=== PATIENT | female | born 1955 | race Caucasian/White ===

== ENCOUNTER 2019-12-05 10:31 | Emergency (ER) | payer MEDICARE ==
[2019-12-05] MEDS ORDERED: Sodium Chloride 0.9% 1,000 ML ONE ×2 (11:33→12:51)
[2019-12-05] MEDS ORDERED: Ondansetron PF 4 MG/2 ML Vial ONE ×2 (11:33→13:21)
[2019-12-05] MEDS ORDERED: Lisinopril 10 MG TAB ONE (11:33)
[2019-12-05 11:37] LABS: Bilirubin Negative (Negative); Blood, Urine Moderate (Negative); Glucose, Urine (Dipstick) Negative (Negative); Leukocyte Trace (Negative); Nitrite Negative (Negative); Protein, Urine (Dipstick) > or equal to 300 mg/dL (Neg-Trace); Urobilinogen 0.2 mg/dL (Less than 2)
[2019-12-05 11:38] LABS: Clarity Hazy (Clear)
[2019-12-05 11:44] LABS: Bacteria/HPF Rare-Few HPF (None Seen); WBC/HPF 0-3 HPF (0-3)
--- NOTE | 2019-12-05 11:51 | RAD ---
EXAM: CHEST ONE VIEW HISTORY: Cough COMPARISON: None FINDINGS: The cardiac silhouette and pulmonary vasculature is within normal limits. Mild elevation right hemidi aphragm is present with minimal volume loss right lung base. Lungs are otherwise clear without consolidation or pleural effusion. The osseous structures are intact. IMPRESSION: No acute cardiopulmonary process.
--- NOTE | 2019-12-05 12:02 | RAD ---
Radiograph left foot 3 views: DATE: 12/05/2019 HISTORY: 64-year-old female with fever and large chronic foot ulcer. COMPARISON: None FINDINGS: There is diffuse soft tissue edema. The soft tissue swelling and edema is especially severe throughou t the mid foot. There is lateral dislocation or subluxation of the fifth metatarsal relative to the tarsal bones. The re is superior subluxation or dislocation of the first metatarsal relative to the tarsal bones. The status of the second, third, and fourth tarsometatarsal joints is difficult to visualize because ther e is amorphous, cloudy new bone in the soft tissues, perhaps representing exuberant callus and or aggressive periostitis, partially obscuring these tarsometatarsal joints. 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
[2019-12-05 12:24] LABS: ALT (SGPT) 14 U/L (8-55); AST (SGOT) 17 U/L (5-34); Albumin 3.3 g/dL (3.4-4.8); Alkaline Phosphatase 99 U/L (40-110); Anion Gap 18 mmol/L (10-20); BUN (Urea Nitrogen) 13 mg/dL (9.8-20.1); Bilirubin, Total 0.5 mg/dL (0.2-1.2); CRP (Inflammatory) 16.67 mg/dL (= or < 0.5); Calc. Creatinine Clearance 0 mL/min (70-130); Calcium 8.2 mg/dL (7.8-10.44); Carbon Dioxide 25 mmol/L (23-31); Chloride 96 mmol/L (98-107); Estimated GFR-MDRD 40; Globulin 4.6 g/dL (2.4-3.5); Glucose 164 mg/dL (80-115); Potassium 3.5 mmol/L (3.5-5.1); Protein, Total 7.9 g/dL (6.0-8.3); Sodium 135 mmol/L (136-145)
[2019-12-05 12:32] LABS: #Basophils 0.1 thou/uL (0.0-0.2); #Eosinphils 0.1 thou/uL (0.0-0.7); #Lymphocytes 0.9 thou/uL (1.20-3.40); #Monocytes 0.7 thou/uL (0.11-0.59); #Neutrophils 10.9 thou/uL (1.40-6.50); %Basophils 0.6 % (0.0-1.0); %Eosinophils 0.7 % (0.0-10.0); %Lymphocytes 6.9 % (21.0-51.0); %Monocytes 5.5 % (0.0-10.0); %Neutrophils 86.3 % (42.0-75.0); Anisocytosis SLIGHT = 6-15 cells (100X) (0-5/hpf); Hemoglobin 11.8 g/dL (12.0-16.0); Hypochromia SLIGHT = 6-15 cells (100X) (0-5/hpf); Large Platelets SLIGHT; MDiff Complete? YES; Mean Corpuscular HGB CONC 32.1 g/dL (32.0-36.0); Mean Corpuscular Hemoglobin 27.8 pg (27.0-31.0); Mean Corpuscular Volume 86.6 fL (78.0-98.0); Mean Platelet Volume 12.9 fL (7.4-10.4); Platelet Count 232 thou/uL (130-400); Platelet Morphology Comment Appears Adequate; RBC Distribution Width 12.6 % (11.5-14.5); Red Blood Cell (RBC) Count 4.23 mill/uL (4.20-5.40); White Blood Cell (WBC) Count 12.7 thou/uL (4.8-10.8)
[2019-12-05] MEDS ORDERED: cefTRIAXone\\ROCEPHIN 2 GM VIAL ONE (12:51)
[2019-12-05] MEDS ORDERED: Sodium Chloride 0.9% 100 ML ONE (12:51)
== END 2019-12-05 14:50 | disposition short-term general hospital (02) ==
LOC: MADERS 10:31
DX: M86.172 Other acute osteomyelitis, left ankle and foot (principal); E11.610 Type 2 diabetes mellitus with diabetic neuropathic arthropathy; E03.9 Hypothyroidism, unspecified; I10 Essential (primary) hypertension; Z79.84 Long term (current) use of oral hypoglycemic drugs; Z79.899 Other long term (current) drug therapy
CPT/HCPCS: 36415; 36416; 71045; 80053; 81003; 81015; 82550; 83605; 83880; 84484; 85025; 86140; 87040; 87070; 87077; 87086; 87186; 87205; 93005; 94760; 96361; 96365; 96367; 96375; 96376; J0696; J1956; J2405; J3490; J7050

== ENCOUNTER → 2019-12-11 | Day surgery (SDC) | payer MEDICARE ==
[~2019-12-11] MED LIST: Ertapenem 1 GM VIAL ONE; Sodium Chloride 0.9% 100 ML BAG ONE
== END ==
LOC: MADER/OP 12:49
PROVIDERS: ATTEND Internal Medicine Infectious Disease
DX: M86.172 Other acute osteomyelitis, left ankle and foot (principal); A41.9 Sepsis, unspecified organism; Z88.0 Allergy status to penicillin; Z88.1 Allergy status to other antibiotic agents; Z88.7 Allergy status to serum and vaccine
CPT/HCPCS: 96365; J1335; J3490

== ENCOUNTER → 2019-12-12 | Day surgery (SDC) | payer MEDICARE | LOC: MADER/OP 07:46 | PROVIDERS: ATTEND Internal Medicine Infectious Disease | DX: M86.172 Other acute osteomyelitis, left ankle and foot (principal); A41.9 Sepsis, unspecified organism; Z88.0 Allergy status to penicillin; Z88.1 Allergy status to other antibiotic agents; Z88.7 Allergy status to serum and vaccine | CPT/HCPCS: 96365; J1335; J3490 ==

== ENCOUNTER → 2019-12-13 | Day surgery (SDC) | payer MEDICARE ==
[2019-12-13 09:14] LABS: #Basophils 0.1 thou/uL (0.0-0.2); #Eosinphils 0.3 thou/uL (0.0-0.7); #Lymphocytes 2.1 thou/uL (1.20-3.40); #Monocytes 0.6 thou/uL (0.11-0.59); #Neutrophils 6.2 thou/uL (1.40-6.50); %Eosinophils 3.5 % (0.0-10.0); %Lymphocytes 22.8 % (21.0-51.0); %Monocytes 6.7 % (0.0-10.0); %Neutrophils 65.9 % (42.0-75.0); Hemoglobin 11.7 g/dL (12.0-16.0); Mean Corpuscular HGB CONC 30.9 g/dL (32.0-36.0); Mean Corpuscular Volume 87.3 fL (78.0-98.0); Mean Platelet Volume 10.6 fL (7.4-10.4); Platelet Count 351 thou/uL (130-400); RBC Distribution Width 12.6 % (11.5-14.5); Red Blood Cell (RBC) Count 4.35 mill/uL (4.20-5.40); White Blood Cell (WBC) Count 9.3 thou/uL (4.8-10.8)
[2019-12-13 09:26] LABS: ALT (SGPT) 13 U/L (8-55); AST (SGOT) 13 U/L (5-34); Albumin 3.2 g/dL (3.4-4.8); Alkaline Phosphatase 74 U/L (40-110); Anion Gap 16 mmol/L (10-20); BUN (Urea Nitrogen) 23 mg/dL (9.8-20.1); Bilirubin, Total 0.2 mg/dL (0.2-1.2); Calc. Creatinine Clearance 0 mL/min (70-130); Calcium 8.3 mg/dL (7.8-10.44); Carbon Dioxide 26 mmol/L (23-31); Chloride 100 mmol/L (98-107); Estimated GFR-MDRD 38; Globulin 4.3 g/dL (2.4-3.5); Glucose 238 mg/dL (80-115); Potassium 4.5 mmol/L (3.5-5.1); Protein, Total 7.5 g/dL (6.0-8.3); Sodium 137 mmol/L (136-145)
== END ==
LOC: MADER/OP 08:02
PROVIDERS: ATTEND Internal Medicine Infectious Disease
DX: M86.172 Other acute osteomyelitis, left ankle and foot (principal); A41.9 Sepsis, unspecified organism; Z88.0 Allergy status to penicillin; Z88.1 Allergy status to other antibiotic agents; Z88.7 Allergy status to serum and vaccine
CPT/HCPCS: 80053; 85025; 86140; 96365; J1335; J3490

== ENCOUNTER → 2019-12-14 | Day surgery (SDC) | payer MEDICARE | LOC: MADER/OP 08:02 | PROVIDERS: ATTEND Internal Medicine Infectious Disease | DX: M86.172 Other acute osteomyelitis, left ankle and foot (principal); A41.9 Sepsis, unspecified organism; Z88.0 Allergy status to penicillin; Z88.1 Allergy status to other antibiotic agents; Z88.7 Allergy status to serum and vaccine | CPT/HCPCS: 96374; J1335; J3490 ==

== ENCOUNTER → 2019-12-15 | Day surgery (SDC) | payer MEDICARE | LOC: MADER/OP 07:41 | PROVIDERS: ATTEND Internal Medicine Infectious Disease | DX: M86.172 Other acute osteomyelitis, left ankle and foot (principal); A41.9 Sepsis, unspecified organism; Z88.0 Allergy status to penicillin; Z88.1 Allergy status to other antibiotic agents; Z88.7 Allergy status to serum and vaccine | CPT/HCPCS: J1335; J3490 ==

== ENCOUNTER → 2019-12-16 | Day surgery (SDC) | payer MEDICARE | LOC: MADER/OP 08:00 | PROVIDERS: ATTEND Internal Medicine Infectious Disease | DX: M86.172 Other acute osteomyelitis, left ankle and foot (principal); A41.9 Sepsis, unspecified organism; Z88.0 Allergy status to penicillin; Z88.1 Allergy status to other antibiotic agents; Z88.7 Allergy status to serum and vaccine | CPT/HCPCS: J1335; J3490 ==

== ENCOUNTER → 2019-12-17 | Day surgery (SDC) | payer MEDICARE | LOC: MADER/OP 07:42 | PROVIDERS: ATTEND Internal Medicine Infectious Disease | DX: M86.172 Other acute osteomyelitis, left ankle and foot (principal); A41.9 Sepsis, unspecified organism; Z88.0 Allergy status to penicillin; Z88.1 Allergy status to other antibiotic agents; Z88.7 Allergy status to serum and vaccine | CPT/HCPCS: J1335; J3490 ==

== ENCOUNTER → 2019-12-18 | Day surgery (SDC) | payer MEDICARE | LOC: MADER/OP 07:36 | PROVIDERS: ATTEND Internal Medicine Infectious Disease | DX: M86.172 Other acute osteomyelitis, left ankle and foot (principal); A41.9 Sepsis, unspecified organism; Z88.0 Allergy status to penicillin; Z88.1 Allergy status to other antibiotic agents; Z88.7 Allergy status to serum and vaccine | CPT/HCPCS: J1335; J3490 ==

== ENCOUNTER → 2019-12-19 | Day surgery (SDC) | payer MEDICARE | LOC: MADER/OP 07:28 | PROVIDERS: ATTEND Internal Medicine Infectious Disease | DX: M86.172 Other acute osteomyelitis, left ankle and foot (principal); A41.9 Sepsis, unspecified organism; Z88.0 Allergy status to penicillin; Z88.1 Allergy status to other antibiotic agents; Z88.7 Allergy status to serum and vaccine | CPT/HCPCS: J1335; J3490 ==

== ENCOUNTER → 2019-12-20 | Day surgery (SDC) | payer MEDICARE | LOC: MADER/OP 07:42 | PROVIDERS: ATTEND Internal Medicine Infectious Disease | DX: M86.172 Other acute osteomyelitis, left ankle and foot (principal); A41.9 Sepsis, unspecified organism; Z88.0 Allergy status to penicillin; Z88.1 Allergy status to other antibiotic agents; Z88.7 Allergy status to serum and vaccine | CPT/HCPCS: J1335; J3490 ==

== ENCOUNTER → 2019-12-21 | Day surgery (SDC) | payer MEDICARE | LOC: MADER/OP 07:56 | PROVIDERS: ATTEND Internal Medicine Infectious Disease | DX: M86.172 Other acute osteomyelitis, left ankle and foot (principal); A41.9 Sepsis, unspecified organism; Z88.0 Allergy status to penicillin; Z88.1 Allergy status to other antibiotic agents; Z88.7 Allergy status to serum and vaccine | CPT/HCPCS: J1335; J3490 ==

== ENCOUNTER → 2019-12-22 | Day surgery (SDC) | payer MEDICARE | LOC: MADER/OP 08:06 | PROVIDERS: ATTEND Internal Medicine Infectious Disease | DX: M86.172 Other acute osteomyelitis, left ankle and foot (principal); A41.9 Sepsis, unspecified organism; Z88.0 Allergy status to penicillin; Z88.1 Allergy status to other antibiotic agents; Z88.7 Allergy status to serum and vaccine | CPT/HCPCS: J1335; J3490 ==

== ENCOUNTER → 2019-12-23 | Day surgery (SDC) | payer MEDICARE | LOC: MADER/OP 07:50 | PROVIDERS: ATTEND Internal Medicine Infectious Disease | DX: M86.172 Other acute osteomyelitis, left ankle and foot (principal); A41.9 Sepsis, unspecified organism; Z88.0 Allergy status to penicillin; Z88.1 Allergy status to other antibiotic agents; Z88.7 Allergy status to serum and vaccine | CPT/HCPCS: J1335; J3490 ==

== ENCOUNTER → 2019-12-24 | Day surgery (SDC) | payer MEDICARE | LOC: MADER/OP 07:33 | PROVIDERS: ATTEND Internal Medicine Infectious Disease | DX: M86.172 Other acute osteomyelitis, left ankle and foot (principal); A41.9 Sepsis, unspecified organism; Z88.0 Allergy status to penicillin; Z88.1 Allergy status to other antibiotic agents; Z88.7 Allergy status to serum and vaccine | CPT/HCPCS: J1335; J3490 ==

== ENCOUNTER → 2019-12-25 | Day surgery (SDC) | payer MEDICARE | LOC: MADER/OP 07:23 | PROVIDERS: ATTEND Internal Medicine Infectious Disease | DX: M86.172 Other acute osteomyelitis, left ankle and foot (principal); A41.9 Sepsis, unspecified organism; Z88.0 Allergy status to penicillin; Z88.1 Allergy status to other antibiotic agents; Z88.7 Allergy status to serum and vaccine | CPT/HCPCS: 96365; J1335; J3490 ==

== ENCOUNTER → 2019-12-26 | Day surgery (SDC) | payer MEDICARE | LOC: MADER/OP 07:36 | PROVIDERS: ATTEND Internal Medicine Infectious Disease | DX: M86.172 Other acute osteomyelitis, left ankle and foot (principal); A41.9 Sepsis, unspecified organism; Z88.0 Allergy status to penicillin; Z88.1 Allergy status to other antibiotic agents; Z88.7 Allergy status to serum and vaccine | CPT/HCPCS: 96365; J1335; J3490 ==

== ENCOUNTER → 2019-12-27 | Day surgery (SDC) | payer MEDICARE ==
[2019-12-27 08:12] LABS: #Basophils 0.1 thou/uL (0.0-0.2); #Eosinphils 0.4 thou/uL (0.0-0.7); #Lymphocytes 1.9 thou/uL (1.20-3.40); #Monocytes 0.4 thou/uL (0.11-0.59); #Neutrophils 4.4 thou/uL (1.40-6.50); %Basophils 1.2 % (0.0-1.0); %Eosinophils 5.5 % (0.0-10.0); %Lymphocytes 26.4 % (21.0-51.0); %Monocytes 6.1 % (0.0-10.0); %Neutrophils 60.8 % (42.0-75.0); Hemoglobin 10.8 g/dL (12.0-16.0); Mean Corpuscular HGB CONC 30.1 g/dL (32.0-36.0); Mean Corpuscular Hemoglobin 26.2 pg (27.0-31.0); Mean Corpuscular Volume 87.2 fL (78.0-98.0); Mean Platelet Volume 13.3 fL (7.4-10.4); Platelet Count 260 thou/uL (130-400); Red Blood Cell (RBC) Count 4.13 mill/uL (4.20-5.40); White Blood Cell (WBC) Count 7.3 thou/uL (4.8-10.8)
[2019-12-27 08:22] LABS: Anisocytosis SLIGHT = 6-15 cells (100X) (0-5/hpf); Platelet Morphology Comment Appears Adequate
[2019-12-27 08:24] LABS: ALT (SGPT) 12 U/L (8-55); AST (SGOT) 12 U/L (5-34); Albumin 3.3 g/dL (3.4-4.8); Alkaline Phosphatase 75 U/L (40-110); Anion Gap 16 mmol/L (10-20); BUN (Urea Nitrogen) 48 mg/dL (9.8-20.1); Bilirubin, Total 0.2 mg/dL (0.2-1.2); CRP (Inflammatory) 2.13 mg/dL (= or < 0.5); Calc. Creatinine Clearance 0 mL/min (70-130); Calcium 8.3 mg/dL (7.8-10.44); Chloride 105 mmol/L (98-107); Estimated GFR-MDRD 32; Globulin 4.5 g/dL (2.4-3.5); Glucose 172 mg/dL (80-115); Potassium 5.4 mmol/L (3.5-5.1); Protein, Total 7.8 g/dL (6.0-8.3); Sodium 139 mmol/L (136-145)
[2019-12-27 08:47] LABS: Carbon Dioxide 23 mmol/L (23-31)
== END ==
LOC: MADER/OP 07:27
PROVIDERS: ATTEND Internal Medicine Infectious Disease
DX: M86.172 Other acute osteomyelitis, left ankle and foot (principal); A41.9 Sepsis, unspecified organism; Z88.0 Allergy status to penicillin; Z88.1 Allergy status to other antibiotic agents; Z88.7 Allergy status to serum and vaccine
CPT/HCPCS: 36415; 80053; 85025; 86140; 96365; J1335; J3490

== ENCOUNTER → 2019-12-28 | Day surgery (SDC) | payer MEDICARE | LOC: MADER/OP 07:39 | PROVIDERS: ATTEND Internal Medicine Infectious Disease | DX: M86.172 Other acute osteomyelitis, left ankle and foot (principal); A41.9 Sepsis, unspecified organism; Z88.0 Allergy status to penicillin; Z88.1 Allergy status to other antibiotic agents; Z88.7 Allergy status to serum and vaccine | CPT/HCPCS: 96365; J1335; J3490 ==

== ENCOUNTER → 2019-12-29 | Day surgery (SDC) | payer MEDICARE | LOC: MADER/OP 07:31 | PROVIDERS: ATTEND Internal Medicine Infectious Disease | DX: M86.172 Other acute osteomyelitis, left ankle and foot (principal); A41.9 Sepsis, unspecified organism; Z88.0 Allergy status to penicillin; Z88.1 Allergy status to other antibiotic agents; Z88.7 Allergy status to serum and vaccine | CPT/HCPCS: J1335; J3490 ==

== ENCOUNTER → 2019-12-30 | Day surgery (SDC) | payer MEDICARE | LOC: MADER/OP 07:46 | PROVIDERS: ATTEND Internal Medicine Infectious Disease | DX: M86.172 Other acute osteomyelitis, left ankle and foot (principal); A41.9 Sepsis, unspecified organism; Z88.0 Allergy status to penicillin; Z88.1 Allergy status to other antibiotic agents; Z88.7 Allergy status to serum and vaccine | CPT/HCPCS: J1335; J3490 ==

== ENCOUNTER → 2019-12-31 | Day surgery (SDC) | payer MEDICARE | LOC: MADER/OP 07:41 | PROVIDERS: ATTEND Internal Medicine Infectious Disease | DX: M86.172 Other acute osteomyelitis, left ankle and foot (principal); A41.9 Sepsis, unspecified organism; Z88.0 Allergy status to penicillin; Z88.1 Allergy status to other antibiotic agents; Z88.7 Allergy status to serum and vaccine | CPT/HCPCS: J1335; J3490 ==

== ENCOUNTER → 2020-01-01 | Day surgery (SDC) | payer MEDICARE | LOC: MADER/OP 07:50 | PROVIDERS: ATTEND Internal Medicine Infectious Disease | DX: M86.172 Other acute osteomyelitis, left ankle and foot (principal); A41.9 Sepsis, unspecified organism; Z88.0 Allergy status to penicillin; Z88.1 Allergy status to other antibiotic agents; Z88.7 Allergy status to serum and vaccine | CPT/HCPCS: J1335; J3490 ==

== ENCOUNTER → 2020-01-02 | Day surgery (SDC) | payer MEDICARE | LOC: MADER/OP 07:39 | PROVIDERS: ATTEND Internal Medicine Infectious Disease | DX: M86.172 Other acute osteomyelitis, left ankle and foot (principal); A41.9 Sepsis, unspecified organism; Z88.0 Allergy status to penicillin; Z88.1 Allergy status to other antibiotic agents; Z88.7 Allergy status to serum and vaccine | CPT/HCPCS: J1335; J3490 ==

== ENCOUNTER → 2020-01-03 | Day surgery (SDC) | payer MEDICARE ==
[2020-01-03 07:59] LABS: #Basophils 0.1 thou/uL (0.0-0.2); #Eosinphils 0.4 thou/uL (0.0-0.7); #Lymphocytes 2.1 thou/uL (1.20-3.40); #Monocytes 0.4 thou/uL (0.11-0.59); #Neutrophils 4.9 thou/uL (1.40-6.50); %Basophils 0.8 % (0.0-1.0); %Eosinophils 4.9 % (0.0-10.0); %Lymphocytes 26.1 % (21.0-51.0); %Monocytes 5.4 % (0.0-10.0); %Neutrophils 62.7 % (42.0-75.0); Hemoglobin 11.3 g/dL (12.0-16.0); Mean Corpuscular HGB CONC 30.3 g/dL (32.0-36.0); Mean Corpuscular Hemoglobin 26.4 pg (27.0-31.0); Mean Corpuscular Volume 87.2 fL (78.0-98.0); Mean Platelet Volume 12.6 fL (7.4-10.4); Platelet Count 254 thou/uL (130-400); RBC Distribution Width 12.8 % (11.5-14.5); Red Blood Cell (RBC) Count 4.27 mill/uL (4.20-5.40); White Blood Cell (WBC) Count 7.9 thou/uL (4.8-10.8)
[2020-01-03 08:50] LABS: ALT (SGPT) 11 U/L (8-55); AST (SGOT) 14 U/L (5-34); Albumin 3.5 g/dL (3.4-4.8); Alkaline Phosphatase 80 U/L (40-110); Anion Gap 15 mmol/L (10-20); BUN (Urea Nitrogen) 41 mg/dL (9.8-20.1); Bilirubin, Total 0.3 mg/dL (0.2-1.2); Calc. Creatinine Clearance 0 mL/min (70-130); Calcium 8.5 mg/dL (7.8-10.44); Carbon Dioxide 23 mmol/L (23-31); Chloride 106 mmol/L (98-107); Estimated GFR-MDRD 36; Globulin 4.8 g/dL (2.4-3.5); Glucose 164 mg/dL (80-115); Potassium 5.3 mmol/L (3.5-5.1); Protein, Total 8.3 g/dL (6.0-8.3); Sodium 139 mmol/L (136-145)
== END ==
LOC: MADER/OP 07:39
PROVIDERS: ATTEND Internal Medicine Infectious Disease
DX: M86.172 Other acute osteomyelitis, left ankle and foot (principal); A41.9 Sepsis, unspecified organism; Z88.0 Allergy status to penicillin; Z88.1 Allergy status to other antibiotic agents; Z88.7 Allergy status to serum and vaccine
CPT/HCPCS: 36415; 80053; 85025; 86140; J1335; J3490

== ENCOUNTER → 2020-01-04 | Day surgery (SDC) | payer MEDICARE | LOC: MADER/OP 07:40 | PROVIDERS: ATTEND Internal Medicine Infectious Disease | DX: M86.172 Other acute osteomyelitis, left ankle and foot (principal); A41.9 Sepsis, unspecified organism; Z88.0 Allergy status to penicillin; Z88.1 Allergy status to other antibiotic agents; Z88.7 Allergy status to serum and vaccine | CPT/HCPCS: J1335; J3490 ==

== ENCOUNTER → 2020-01-05 | Day surgery (SDC) | payer MEDICARE | LOC: MADER/OP 07:24 | PROVIDERS: ATTEND Internal Medicine Infectious Disease | DX: M86.172 Other acute osteomyelitis, left ankle and foot (principal); A41.9 Sepsis, unspecified organism; Z88.0 Allergy status to penicillin; Z88.1 Allergy status to other antibiotic agents; Z88.7 Allergy status to serum and vaccine | CPT/HCPCS: J1335; J3490 ==

== ENCOUNTER → 2020-01-06 | Day surgery (SDC) | payer MEDICARE | LOC: MADER/OP 07:33 | PROVIDERS: ATTEND Internal Medicine Infectious Disease | DX: M86.172 Other acute osteomyelitis, left ankle and foot (principal) | CPT/HCPCS: J1335; J3490 ==

== ENCOUNTER → 2020-01-07 | Day surgery (SDC) | payer MEDICARE | LOC: MADER/OP 07:22 | PROVIDERS: ATTEND Internal Medicine Infectious Disease | DX: M86.172 Other acute osteomyelitis, left ankle and foot (principal); A41.9 Sepsis, unspecified organism; Z88.0 Allergy status to penicillin; Z88.1 Allergy status to other antibiotic agents; Z88.7 Allergy status to serum and vaccine | CPT/HCPCS: J1335; J3490 ==

== ENCOUNTER → 2020-01-08 | Day surgery (SDC) | payer MEDICARE | LOC: MADER/OP 07:41 | PROVIDERS: ATTEND Internal Medicine Infectious Disease | DX: M86.172 Other acute osteomyelitis, left ankle and foot (principal); A41.9 Sepsis, unspecified organism; Z88.0 Allergy status to penicillin; Z88.1 Allergy status to other antibiotic agents; Z88.7 Allergy status to serum and vaccine | CPT/HCPCS: J1335; J3490 ==

== ENCOUNTER → 2020-01-09 | Day surgery (SDC) | payer MEDICARE | LOC: MADER/OP 07:34 | PROVIDERS: ATTEND Internal Medicine Infectious Disease | DX: M86.172 Other acute osteomyelitis, left ankle and foot (principal); A41.9 Sepsis, unspecified organism; Z88.0 Allergy status to penicillin; Z88.1 Allergy status to other antibiotic agents; Z88.7 Allergy status to serum and vaccine | CPT/HCPCS: J1335; J3490 ==

== ENCOUNTER → 2020-01-10 | Day surgery (SDC) | payer MEDICARE ==
[2020-01-10 08:02] LABS: #Basophils 0.1 thou/uL (0.0-0.2); #Eosinphils 0.4 thou/uL (0.0-0.7); #Lymphocytes 1.9 thou/uL (1.20-3.40); #Monocytes 0.4 thou/uL (0.11-0.59); #Neutrophils 4.7 thou/uL (1.40-6.50); %Basophils 1.3 % (0.0-1.0); %Eosinophils 4.8 % (0.0-10.0); %Lymphocytes 24.8 % (21.0-51.0); %Monocytes 5.7 % (0.0-10.0); %Neutrophils 63.3 % (42.0-75.0); Hemoglobin 10.8 g/dL (12.0-16.0); Mean Corpuscular HGB CONC 29.9 g/dL (32.0-36.0); Mean Corpuscular Hemoglobin 25.9 pg (27.0-31.0); Mean Corpuscular Volume 86.8 fL (78.0-98.0); Mean Platelet Volume 12.5 fL (7.4-10.4); Platelet Count 278 thou/uL (130-400); Red Blood Cell (RBC) Count 4.15 mill/uL (4.20-5.40); White Blood Cell (WBC) Count 7.4 thou/uL (4.8-10.8)
[2020-01-10 08:20] LABS: ALT (SGPT) 10 U/L (8-55); AST (SGOT) 14 U/L (5-34); Albumin 3.3 g/dL (3.4-4.8); Alkaline Phosphatase 82 U/L (40-110); Anion Gap 14 mmol/L (10-20); BUN (Urea Nitrogen) 43 mg/dL (9.8-20.1); Bilirubin, Total 0.2 mg/dL (0.2-1.2); CRP (Inflammatory) 3.21 mg/dL (= or < 0.5); Calc. Creatinine Clearance 0 mL/min (70-130); Calcium 8.8 mg/dL (7.8-10.44); Carbon Dioxide 24 mmol/L (23-31); Chloride 106 mmol/L (98-107); Estimated GFR-MDRD 34; Globulin 4.7 g/dL (2.4-3.5); Glucose 148 mg/dL (80-115); Potassium 5.4 mmol/L (3.5-5.1); Sodium 139 mmol/L (136-145)
== END ==
LOC: MADER/OP 07:36
PROVIDERS: ATTEND Internal Medicine Infectious Disease
DX: M86.272 Subacute osteomyelitis, left ankle and foot (principal); Z88.0 Allergy status to penicillin; Z88.1 Allergy status to other antibiotic agents; Z88.7 Allergy status to serum and vaccine
CPT/HCPCS: 36415; 80053; 85025; 86140; J1335; J3490

== ENCOUNTER → 2020-01-11 | Day surgery (SDC) | payer MEDICARE | LOC: MADER/OP 07:48 | PROVIDERS: ATTEND Internal Medicine Infectious Disease | DX: M86.172 Other acute osteomyelitis, left ankle and foot (principal); A41.9 Sepsis, unspecified organism; Z88.0 Allergy status to penicillin; Z88.1 Allergy status to other antibiotic agents; Z88.7 Allergy status to serum and vaccine | CPT/HCPCS: J1335; J3490 ==

== ENCOUNTER → 2020-01-12 | Day surgery (SDC) | payer MEDICARE | LOC: MADER/OP 07:43 | PROVIDERS: ATTEND Internal Medicine Infectious Disease | DX: M86.172 Other acute osteomyelitis, left ankle and foot (principal); A41.9 Sepsis, unspecified organism; Z88.0 Allergy status to penicillin; Z88.1 Allergy status to other antibiotic agents; Z88.7 Allergy status to serum and vaccine | CPT/HCPCS: J1335; J3490 ==

== ENCOUNTER → 2020-01-13 | Day surgery (SDC) | payer MEDICARE | LOC: MADER/OP 07:50 | PROVIDERS: ATTEND Internal Medicine Infectious Disease | DX: M86.172 Other acute osteomyelitis, left ankle and foot (principal); A41.9 Sepsis, unspecified organism; Z88.0 Allergy status to penicillin; Z88.1 Allergy status to other antibiotic agents; Z88.7 Allergy status to serum and vaccine | CPT/HCPCS: J1335; J3490 ==

== ENCOUNTER → 2020-01-14 | Day surgery (SDC) | payer MEDICARE | LOC: MADER/OP 07:33 | PROVIDERS: ATTEND Internal Medicine Infectious Disease | DX: M86.172 Other acute osteomyelitis, left ankle and foot (principal); A41.9 Sepsis, unspecified organism; Z88.0 Allergy status to penicillin; Z88.1 Allergy status to other antibiotic agents; Z88.7 Allergy status to serum and vaccine | CPT/HCPCS: J1335; J3490 ==

== ENCOUNTER → 2020-01-15 | Day surgery (SDC) | payer MEDICARE | LOC: MADER/OP 07:37 | PROVIDERS: ATTEND Internal Medicine Infectious Disease | DX: M86.172 Other acute osteomyelitis, left ankle and foot (principal); A41.9 Sepsis, unspecified organism; Z88.0 Allergy status to penicillin; Z88.1 Allergy status to other antibiotic agents; Z88.7 Allergy status to serum and vaccine | CPT/HCPCS: 96365; J1335; J3490 ==

== ENCOUNTER → 2020-01-16 | Day surgery (SDC) | payer MEDICARE | LOC: MADER/OP 07:38 | PROVIDERS: ATTEND Internal Medicine Infectious Disease | DX: M86.172 Other acute osteomyelitis, left ankle and foot (principal); A41.9 Sepsis, unspecified organism; Z88.0 Allergy status to penicillin; Z88.1 Allergy status to other antibiotic agents; Z88.7 Allergy status to serum and vaccine | CPT/HCPCS: 96365; J1335; J3490 ==

== ENCOUNTER → 2020-01-17 | Day surgery (SDC) | payer MEDICARE ==
[2020-01-17 08:40] LABS: Hemoglobin 10.3 g/dL (12.0-16.0); Mean Corpuscular HGB CONC 30.4 g/dL (32.0-36.0); Mean Corpuscular Hemoglobin 26.1 pg (27.0-31.0); Mean Corpuscular Volume 85.7 fL (78.0-98.0); Mean Platelet Volume 12.6 fL (7.4-10.4); Platelet Count 288 thou/uL (130-400); Red Blood Cell (RBC) Count 3.94 mill/uL (4.20-5.40); White Blood Cell (WBC) Count 8.4 thou/uL (4.8-10.8)
[2020-01-17 08:54] LABS: ALT (SGPT) 9 U/L (8-55); AST (SGOT) 16 U/L (5-34); Albumin 3.3 g/dL (3.4-4.8); Alkaline Phosphatase 82 U/L (40-110); Anion Gap 18 mmol/L (10-20); BUN (Urea Nitrogen) 48 mg/dL (9.8-20.1); Bilirubin, Total 0.4 mg/dL (0.2-1.2); CRP (Inflammatory) 4.43 mg/dL (= or < 0.5); Calc. Creatinine Clearance 0 mL/min (70-130); Calcium 8.4 mg/dL (7.8-10.44); Carbon Dioxide 23 mmol/L (23-31); Chloride 105 mmol/L (98-107); Estimated GFR-MDRD 34; Globulin 4.5 g/dL (2.4-3.5); Glucose 114 mg/dL (80-115); Potassium 4.8 mmol/L (3.5-5.1); Protein, Total 7.8 g/dL (6.0-8.3); Sodium 141 mmol/L (136-145)
== END ==
LOC: MADER/OP 07:40
PROVIDERS: ATTEND Internal Medicine Infectious Disease
DX: M86.172 Other acute osteomyelitis, left ankle and foot (principal); A41.9 Sepsis, unspecified organism; Z88.0 Allergy status to penicillin; Z88.1 Allergy status to other antibiotic agents; Z88.7 Allergy status to serum and vaccine
CPT/HCPCS: 80053; 85027; 86140; J1335; J3490

== ENCOUNTER 2022-05-14 10:16 | Outpatient (CLI) | payer MEDICARE, OTHER | END 2022-05-14 10:17 | disposition home or self-care (01) | LOC: MADRAD 10:16 | PROVIDERS: ATTEND Nurse Practitioner Family | DX: M25.562 Pain in left knee (principal) ==

== ENCOUNTER 2023-03-24 23:58 | Emergency (ER) | payer OTHER ==
[2023-03-25 00:30] LABS: #Basophils 0.1 thou/uL (0.0-0.2); #Eosinphils 0.3 thou/uL (0.0-0.7); #Lymphocytes 2.8 thou/uL (1.20-3.40); #Monocytes 0.5 thou/uL (0.11-0.59); #Neutrophils 7.4 thou/uL (1.40-6.50); %Basophils 1.2 % (0.0-1.0); %Eosinophils 2.9 % (0.0-10.0); %Lymphocytes 25.3 % (21.0-51.0); %Monocytes 4.1 % (0.0-10.0); %Neutrophils 66.5 % (42.0-75.0); Hematocrit 30.6 % (36.0-47.0); Hemoglobin 9.9 g/dL (12.0-16.0); Mean Corpuscular HGB CONC 32.3 g/dL (32.0-36.0); Mean Corpuscular Hemoglobin 28.4 pg (27.0-31.0); Mean Corpuscular Volume 87.7 fl (78.0-98.0); Mean Platelet Volume 12.8 fL (7.4-10.4); Platelet Count 308 10x3/uL (130-400); RBC Distribution Width 16.9 % (11.5-14.5); Red Blood Cell (RBC) Count 3.49 mill/uL (4.20-5.40); White Blood Cell (WBC) Count 11.2 10x3/uL (4.8-10.8)
[2023-03-25 00:42] LABS: Base Excess-Venous -7.5 mmol/L (-2.0 to 3.0); Bicarbonate (HCO3v) 18.5 mmol/L (22.0-28.0); CO2 Tension (PvCO2) 38.4 mmHg (42.0-51.0); Chloride 112 mmol/L (98-107); Hemoglobin - Calc 10.7 g/dL (12.0-16.0); Potassium 4.7 mmol/L (3.5-5.1); Sodium 138 mmol/L (138-145); T. Carbon Dioxide 19.7 mmol/L (22.0-28.0); vO2 Saturation-calc 90.5 % (60.0-85.0)
[2023-03-25 00:47] LABS: ALT (SGPT) 27 U/L (8-55); AST (SGOT) 23 U/L (5-34); Albumin 3.7 g/dL (3.4-4.8); Alkaline Phosphatase 77 U/L (40-110); Anion Gap 17 mmol/L (10-20); BUN (Urea Nitrogen) 28 mg/dL (9.8-20.1); Bilirubin, Total 0.5 mg/dL (0.2-1.2); Calc. Creatinine Clearance 0 mL/min (70-130); Calcium 8.9 mg/dL (7.8-10.44); Carbon Dioxide 18 mmol/L (23-31); Chloride 108 mmol/L (98-107); Estimated GFR 35; Globulin 3.5 g/dL (2.4-3.5); Glucose 145 mg/dL (80-115); Magnesium 1.6 mg/dL (1.6-2.6); Potassium 4.6 mmol/L (3.5-5.1); Protein, Total 7.2 g/dL (5.8-8.1); Sodium 138 mmol/L (136-145)
[2023-03-25 01:14] LABS: SARS-CoV-2 NAA Rapid Test Not Detected (NotDetected)
[2023-03-25] MEDS ORDERED: Sodium Chloride 0.9% 250 ML 250 ML ONE (01:15)
[2023-03-25] MEDS ORDERED: LevoFLOXacin 750 mg/D5W 150 ml Premix Bag ONE (01:15)
[2023-03-25] MEDS ORDERED: Vancomycin 1 GM VIAL ONE (01:15)
[2023-03-25] MEDS ORDERED: Furosemide 20 MG/2 ML VIAL ONE ×2 (01:39→02:38)
[2023-03-25 02:17] LABS: Bilirubin Moderate (Negative); Blood, Urine Negative (Negative); Clarity Hazy (Clear); Glucose, Urine (Dipstick) 100 mg/dL (Negative); Ketone, Urine Trace mg/dL (Negative); Leukocyte Negative (Negative); Nitrite Positive (Negative); Protein, Urine (Dipstick) > or equal to 300 mg/dL (Neg-Trace); Specific Gravity, Urine 1.015 (1.005-1.030)
[2023-03-25 02:18] LABS: Bacteria/HPF 1+ HPF (None Seen); CAUTI Indications for Culture Dysuria,urgency,freq; RBC/HPF 0-3 HPF (0-3)
[2023-03-25 02:19] LABS: Urine Culture Reflex No No
[2023-03-25 02:49] LABS: Troponin I 0.023 ng/mL (< 0.028)
== END 2023-03-25 02:56 | disposition short-term general hospital (02) ==
LOC: MADERS 23:58
DX: A41.9 Sepsis, unspecified organism (principal); J96.00 Acute respiratory failure, unspecified whether with hypoxia or hypercapnia; I11.0 Hypertensive heart disease with heart failure; I50.9 Heart failure, unspecified; N39.0 Urinary tract infection, site not specified; Z20.822 Contact with and (suspected) exposure to COVID-19; E11.9 Type 2 diabetes mellitus without complications; E03.9 Hypothyroidism, unspecified; Z79.899 Other long term (current) drug therapy; Z79.84 Long term (current) use of oral hypoglycemic drugs
CPT/HCPCS: 0240U; 71045; 71275; 80053; 81001; 82330; 82435; 82803; 83605; 83735; 83880; 84132; 84295; 84484; 85014; 85025; 87086; 93005; 31500; 51702; 96365; 96368; 96375; 96376; J1940; J1956; J3370; J7050

== ENCOUNTER 2024-09-03 20:43 | Emergency (ER) | payer MEDICARE, OTHER ==
[2024-09-03] MEDS ORDERED: Acetaminophen 500 MG TAB ONE (21:16)
[2024-09-03] MEDS ORDERED: Silver Sulfadiazine 50 GM TUBE ONE (21:16)
== END 2024-09-03 21:41 | disposition home or self-care (01) ==
LOC: MADERS 20:43
DX: T22.211A Burn of second degree of right forearm, initial encounter (principal); T31.0 Burns involving less than 10% of body surface; E11.40 Type 2 diabetes mellitus with diabetic neuropathy, unspecified; I13.0 Hypertensive heart and chronic kidney disease with heart failure and stage 1 through stage 4 chronic kidney disease, or unspecified chronic kidney disease; E11.22 Type 2 diabetes mellitus with diabetic chronic kidney disease; N18.30 Chronic kidney disease, stage 3 unspecified; I50.9 Heart failure, unspecified; X10.1XXA Contact with hot food, initial encounter
CPT/HCPCS: 16020; 99283